=== PATIENT | female | born 1975 | race Caucasian/White ===

== ENCOUNTER 2017-11-23 16:48 | Emergency (ER) | payer OTHER, MEDICAID ==
[2017-11-23] MEDS: IBUPROFEN 600 MG TAB PO (18:28)
[2017-11-23] MEDS: ACETAMINOPHEN 325 MG TAB PO (18:28)
== END 2017-11-23 19:54 | disposition home or self-care (01) ==
LOC: FTE 16:48
DX: J06.9 Acute upper respiratory infection, unspecified (principal)
CPT/HCPCS: 99283; Z7502